=== PATIENT | male | born 1995 | race Caucasian/White ===

== ENCOUNTER 2023-11-10 05:53 | Emergency (ER) | payer OTHER ==
[2023-11-10] MEDS ORDERED: Ondansetron PF 4 MG/2 ML Vial ONE (06:05)
[2023-11-10] MEDS ORDERED: Morphine 4 MG/ML VIAL ONE (06:15)
[2023-11-10 06:16] LABS: #Basophils 0.03 10x3/uL (0.0-0.2); #Monocytes 0.54 10x3/uL (0.0-1.1); #Neutrophils 12.07 10x3/uL (1.5-8.4); %Basophils 0.2 % (0.0-2.0); %Lymphocytes 9.2 % (18.0-47.0); %Monocytes 3.9 % (0.0-10.0); %Neutrophils 86.4 % (40.0-75.0); Hematocrit 53.4 % (38.8-50.0); Mean Corpuscular HGB CONC 33.7 g/dL (32.0-36.0); Mean Corpuscular Hemoglobin 27.4 pg (27.0-33.0); Mean Corpuscular Volume 81.2 fL (81.2-95.1); Mean Platelet Volume 10.1 fL (7.4-10.4); Platelet Count 331 10x3/uL (150-450); RBC Distribution Width 13.3 % (11.5-14.5); Red Blood Cell (RBC) Count 6.58 10x6/uL (4.32-5.72)
[2023-11-10] MEDS ORDERED: Ketorolac Tromethamine 30 MG (1 mL) VIAL ONE (06:17)
[2023-11-10 06:32] LABS: ALT (SGPT) 47 U/L (8-55); AST (SGOT) 32 U/L (5-34); Albumin 5.1 g/dL (3.5-5.0); Alkaline Phosphatase 82 U/L (40-110); Anion Gap 21 mmol/L (10-20); BUN (Urea Nitrogen) 10 mg/dL (8.9-20.6); Bilirubin, Total 1.8 mg/dL (0.2-1.2); Calc. Creatinine Clearance 0 mL/min (70-130); Calcium 10.7 mg/dL (7.8-10.44); Carbon Dioxide 20 mmol/L (22-29); Chloride 102 mmol/L (98-107); Estimated GFR 84; Globulin 3.7 g/dL (2.4-3.5); Glucose 148 mg/dL (70-105); Lipase 22 U/L (8-78); Potassium 3.8 mmol/L (3.5-5.1); Protein, Total 8.8 g/dL (6.0-8.3); Sodium 139 mmol/L (136-145)
[2023-11-10] MEDS ORDERED: Piperacillin/Tazobactam 4.5 GM VIAL ONE (07:36)
[2023-11-10] MEDS ORDERED: Dicyclomine 20 MG/2 ML VIAL ONE (07:57)
[2023-11-10 09:55] LABS: Bilirubin Neg (Negative); Blood, Urine Negative (Negative); Clarity Clear (Clear); Glucose, Urine (Dipstick) Normal (Negative); Ketone, Urine 50 mg/dL (Negative); Leukocyte Negative (Negative); Nitrite Negative (Negative); Protein, Urine (Dipstick) 30 mg/dl (Neg-Trace); Specific Gravity, Urine 1.005 (1.005-1.030); Urobilinogen Normal mg/dL (Less than 2)
[2023-11-10 10:16] LABS: Bacteria/HPF Rare-Few HPF (None Seen); CAUTI Indications for Culture Pelvic or flank pain; RBC/HPF None Seen HPF (0-3); Squamous Epithelial 0-3 HPF (0-3); WBC/HPF 0-3 HPF (0-3)
[2023-11-10 10:17] LABS: Urine Culture Reflex No No
[2023-11-10] MEDS ORDERED: Iopamidol 370 76% 100 ML VIAL ONE (11:22)
== END 2023-11-10 11:04 | disposition home or self-care (01) ==
LOC: CSHERS 05:53
DX: R10.11 Right upper quadrant pain (principal); M79.606 Pain in leg, unspecified; I10 Essential (primary) hypertension
CPT/HCPCS: 36415; 74177; 76705; 80053; 81001; 83605; 83690; 85025; 87040; 96361; 96365; 96372; 96375; J1885; J2272; J2405; J2543; Q9967